=== PATIENT | male | born 1990 | race Two or more races ===

== ENCOUNTER 2017-07-18 16:33 | Emergency (ER) | payer OTHER ==
[~2017-07-18] VITALS: Ht 167.6 cm; Wt 73.0 kg
[2017-07-18 17:45] VITALS: BP 104/63
== END 2017-07-18 18:54 | disposition home or self-care (01) ==
LOC: ER 17:39
DX: H60.92 Unspecified otitis externa, left ear (principal)
CPT/HCPCS: 99283